=== PATIENT | female | born 1950 | race African-American/Black ===

== ENCOUNTER 2017-02-21 05:50 | Emergency (ER) | payer BC, OTHER ==
[~2017-02-21 05:50] MED LIST: AMIT25 PO; FEMARA PO; KLOR-CON 1010 MEQ PO; LOTE40 PO; MULTIVITAMI1 PO; PAX20 PO; PRAVAC PO; PRILOSEC40 MG PO; SINGULAIR1 PO; TENORETIC1 TAB PO; UNK BP MED; XYZAL5 MG PO
== END 2017-02-21 06:27 | disposition home or self-care (01) ==
LOC: ER 05:50
DX: M79.1 Myalgia (principal); K59.00 Constipation, unspecified; I10 Essential (primary) hypertension; K21.9 Gastro-esophageal reflux disease without esophagitis; Z88.0 Allergy status to penicillin; Z79.899 Other long term (current) drug therapy
CPT/HCPCS: 96372; 99283; J1885